=== PATIENT | female | born 1995 | race Caucasian/White ===

== ENCOUNTER 2023-03-18 14:20 | Emergency (ER) | payer OTHER ==
[2023-03-18 14:38] VITALS: BP 150/89
--- NOTE | 2023-03-18 15:17 | ED Physician Documentation ---
PD HPI UPPER EXT INJURY - Stated complaint Stated Complaint: R HAND LAC - Chief complaint Chief Complaint: Laceration - History obtained from History obtained from: Patient - Additonal information Additional information: Patient is a 27-year-old female presenting for evaluation of laceration to her right hand that occurred just prior to arrival. 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 She does not take a blood thinner. Review of Systems Constitutional: denies: Fever Skin: reports: Laceration (s) PD PAST MEDICAL HISTORY - Allergies Allergies/Adverse Reactions: Allergies Allergy/AdvReac Type Severity Reaction Status Date / Time diphenhydramine Allergy Edema Verified 03/18/23 14:39 [From Benadryl] PD ED PE NORMAL - General General: Alert and oriented X 3, No acute distress, Well developed/nourished - HEENT HEENT: Atraumatic - Cardiac Cardiac: Strong equal pulses - Respiratory Respiratory: No respiratory distress - Extremities Extremities: Other (1 cm laceration to dorsum of right hand between first and second digits, normal range of motion at all joints, no foreign body) - Neuro Neuro: No motor deficit, No sensory deficit Results - Vitals Vitals: Vital Signs - 24 hr 03/18/23 14:34 Temperature 36.9 C Heart Rate 90 Respiratory 16 Rate Blood Pressure 150/89 H O2 Saturation 100 Oxygen O2 Source Room air Procedures - Laceration (location) Right hand Length in cm: 1 Wound type: Curved, Clean Neurovascular status: Sensory intact, Motor intact, Vascular intact Tendon involvement: Tendon intact Anesthesia: Lidocaine 1% with epi Wound preparation: Hibiclens, Irrigated copiously NS, Wound explored, To the base, Other (No foreign body seen) Skin layer closure: Size #-0 - enter number (4), Sutures - enter # (3) Other: Patient tolerated well, No complications, Neurovascular intact, Dressing applied, Tetanus UTD PD Medical Decision Making - ED course Complexity details: reviewed results, d/w patient ED course: Patient is a 27-year-old female presenting for evaluation of laceration to her right hand She was handling a shower door.An x-ray was obtained to evaluate for any radiopaque foreign bodies. I do not see any signs of a foreign body on the x-ray. I also explored the wound and do not see any signs of a foreign body.The wound was copiously irrigated and cleaned and sutured. The patient is advised on wound care instructions, need to return for suture removal as well as concerning symptoms to return for. Neurovascular intact with no signs of tendon injury.Patient believes her tetanus is up-to-date as she is required to have it for work. Departure - Departure Disposition: 01 Home, Self Care Clinical Impression: Laceration of right hand Condition: Stable Instructions: ED Laceration Ext Sutr Stap Tape Comments: You have a laceration to your right hand that was closed with 3 stitches. These should be left in For approximately 7 days.Return to the emergency department To a walk-in clinic to have them removed. Please keep the wound clean and dry.I did not see any signs of a foreign body left in the wound and your x-ray also does not show any signs of a retained foreign body. Please return to the ER if you develop any worsening symptoms such as swelling, redness, abnormal drainage. Discharge Date/Time: 03/18/23 16:05
--- NOTE | 2023-03-18 15:21 | XRAY Report ---
PROCEDURE: Hand 3 View RT INDICATIONS: lac/eval for FB TECHNIQUE: 3 views of the hand(s) acquired. COMPARISON: None. FINDINGS: Bones: No fractures or dislocations. No suspicious bony lesions. Soft tissues: No suspicious soft tissue calcifications or masses. Soft tissue irregularity is noted. IMPRESSION: No radiopaque foreign bodies are seen. No mini bony involvement can be seen. Reviewed by: Tremaine Hall MD on 03/18/2023 2:20 PM [facility] Approved by: Tremaine Hall MD on 03/18/2023 2:20 PM [facility] Station ID: [id number]
== END 2023-03-18 16:05 | disposition home or self-care (01) ==
LOC: ED 14:20
DX: S61.411A Laceration without foreign body of right hand, initial encounter (principal); W25.XXXA Contact with sharp glass, initial encounter; Y93.89 Activity, other specified
CPT/HCPCS: 12001; 99283

== ENCOUNTER 2023-03-25 09:44 | Emergency (ER) | payer OTHER ==
[2023-03-25 09:48] VITALS: BP 127/79
--- NOTE | 2023-03-25 09:59 | ED Physician Documentation ---
History of Present Illness - Stated complaint Stated Complaint: RT HAND STITCH REMOVAL - Chief complaint Chief Complaint: General - History obtained from History obtained from: Patient - Additonal information Additional information: The pt presents for suture removal from R hand 1st web space. No drainage, dehiscence, or other complaints. Pt reports stitches have been in place for about 1 week. PD PAST MEDICAL HISTORY - Allergies Allergies/Adverse Reactions: Allergies Allergy/AdvReac Type Severity Reaction Status Date / Time diphenhydramine Allergy Edema Verified 03/18/23 14:39 [From Benadryl] PD ED PE NORMAL - Vitals Vital signs reviewed: Yes - General General: Alert and oriented X 3, No acute distress, Well developed/nourished - HEENT HEENT: Atraumatic, PERRL, EOMI, Moist mucous membranes - Neck Neck: Supple, no meningeal sign - Respiratory Respiratory: No respiratory distress - Derm Derm: Normal color, Warm and dry, Other (1 cm flap laceration, healing, R hand. [address] No drainage or dehiscence[address] No redness or swelling) - Extremities Extremities: No deformity - Neuro Neuro: Alert and oriented X 3 - Psych Psych: Normal mood, Normal affect Results - Vitals Vitals: Oxygen O2 Source Room air PD Medical Decision Making - ED course Complexity details: considered differential, d/w patient ED course: Sutures were removed, and wound looked good. The pt was advised regarding wound care at home. Departure - Departure Disposition: 01 Home, Self Care Clinical Impression: Visit for suture removal Condition: Stable Instructions: ED Wound Check Sutr Remove No Infec Discharge Date/Time: 03/25/23 10:08
== END 2023-03-25 10:08 | disposition home or self-care (01) ==
LOC: ED 09:44
DX: S61.411D Laceration without foreign body of right hand, subsequent encounter (principal); X58.XXXD Exposure to other specified factors, subsequent encounter
CPT/HCPCS: 99281; 99282